=== PATIENT | female | born 1950 | race Caucasian/White ===

== ENCOUNTER 2020-01-21 10:17 | Outpatient (CLI) | payer OTHER, SELFPAY ==
--- NOTE | ~2020-01-21 | MM_ITS ---
EXAMINATION: MM screening dany BI w carleen HISTORY: Screening mammogram TECHNIQUE: Craniocaudal and mediolateral oblique 3-D tomosynthesis images were obtained and synthetic 2-D images were generated. CAD analysis was submitted and interpreted. COMPARISON: Comparison to multiple prior studies sequentially, with oldest reviewed study dated 10/22. BREAST PARENCHYMAL COMPOSITION: There are scattered areas of fibroglandular density. FINDINGS: The left breast is surgically absent. There is no evidence of suspicious mass, calcificatio n, or architectural distortion to suggest malignancy in either breast. There has been no suspicious i nterval change. IMPRESSION: 1. No mammographic evidence of malignancy. 2. Recommend routine screening mammography in one year. BI-RADS Category 1: Negative Reviewed, dictated and finalized at location A.
== END 2020-01-21 10:18 | disposition home or self-care (01) ==
LOC: ANHIMG 10:26
PROVIDERS: Visit Provider Emergency Medicine
DX: Z12.31 Encounter for screening mammogram for malignant neoplasm of breast (principal)
CPT/HCPCS: 77063; 77067

== ENCOUNTER 2021-02-10 10:28 | Outpatient (CLI) | payer OTHER, SELFPAY ==
--- NOTE | ~2021-02-10 | MM_ITS ---
EXAMINATION: MM screening dany RT w carleen HISTORY: Screening TECHNIQUE: Craniocaudal and mediolateral oblique 3-D tomosynthesis images were obtained and synthetic 2-D images were generated. CAD analysis was submitted and interpreted. COMPARISON: Comparison to multiple prior studies sequentially, with oldest reviewed study dated 10/22. BREAST PARENCHYMAL COMPOSITION: The breasts are heterogeneously dense, which may obscure small masses . FINDINGS: There is no evidence of suspicious mass, calcification, or architectural distortion to sugg est malignancy in either breast. There has been no suspicious interval change. IMPRESSION: 1. No mammographic evidence of malignancy. 2. Recommend routine screening mammography in one year. BI-RADS Category 1: Negative Reviewed, dictated and finalized at location A.
== END 2021-02-10 10:29 | disposition home or self-care (01) ==
LOC: ANHIMG 10:30
PROVIDERS: Visit Provider Emergency Medicine
DX: Z12.31 Encounter for screening mammogram for malignant neoplasm of breast (principal)
CPT/HCPCS: 77063; 77067

== ENCOUNTER 2022-03-16 10:11 | Outpatient (CLI) | payer OTHER, SELFPAY ==
--- NOTE | ~2022-03-16 | MM_ITS ---
EXAMINATION: MM screening dany RT w carleen HISTORY: Screening TECHNIQUE: Craniocaudal and mediolateral oblique 3-D tomosynthesis images were obtained and synthetic 2-D images were generated. CAD analysis was submitted and interpreted. COMPARISON: Comparison to multiple prior studies sequentially, with oldest reviewed study dated 10/10. BREAST PARENCHYMAL COMPOSITION: The breasts are heterogenously dense, which may obscure small masses FINDINGS: There is no evidence of suspicious mass, calcification, or architectural distortion to sugg est malignancy in the right breast. There has been no suspicious interval change. IMPRESSION: 1. No mammographic evidence of malignancy. 2. Recommend routine screening mammography in one year. BI-RADS Category 1: Negative Reviewed, dictated and finalized at location A.
== END 2022-03-16 10:12 | disposition home or self-care (01) ==
PROVIDERS: Visit Provider Family Medicine
DX: Z12.31 Encounter for screening mammogram for malignant neoplasm of breast (principal)
CPT/HCPCS: 77063; 77067

== ENCOUNTER 2022-10-15 09:15 | Emergency (ER) | payer OTHER, SELFPAY ==
--- NOTE | ~2022-10-15 | XR_ITS ---
EXAMINATION: XR nasal bones min 3V DATE: 10/15/2022 10:12 INDICATION: Nose injury and swelling. TECHNIQUE: 3 views of the nasal bones were obtained. COMPARISON: Head CT 03/08/2015 FINDINGS: There is chronic rightward deviation of the nasal septum. There are nondisplaced fractures of the nasal bones. IMPRESSION: 1. Nondisplaced fractures of the nasal bones. Reviewed, dictated and finalized at location A. 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
--- NOTE | ~2022-10-15 | XR_ITS ---
EXAMINATION: XR chest 2V DATE: 10/15/2022 10:11 INDICATION: Syncope. TECHNIQUE: Frontal and lateral views of the chest were obtained. COMPARISON: Chest 2 views 10/05/2012 FINDINGS: There is no pneumonia, pleural effusion, or pneumothorax. The heart size is normal. IMPRESSION: 1. No acute cardiopulmonary disease. Reviewed, dictated and finalized at location A. 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
--- NOTE | 2022-10-15 09:20 | ECG_ITS ---
Measurements Intervals [place] Rate: 58 P: -1 KS: 141 QRS: -54 QRSD: 161 T: 112 QT: 436 QTc: 431 Interpretive Statements SINUS BRADYCARDIA LEFT AXIS DEVIATION LEFT BUNDLE BRANCH BLOCK BASELINE ARTIFACT- I, II, III, AVR, AVL, AVF ABNORMAL ECG NO PREVIOUS ECG AVAILABLE FOR COMPARISON Electronically Signed On 10-15-2022 10:44:35 SHERIFF DEPUTY by Partha Solis D.O.
--- NOTE | 2022-10-15 09:27 | ED.SYNCOPE ---
HPI - Syncope General Chief Complaint: Syncope Stated Complaint: Syncope Time Seen by Provider: 10/15/22 09:15 Source: patient and EMS Mode of arrival: EMS Limitations: no limitations History of Present Illness HPI narrative: 72 year old female arrives to the Emergency Department via EMS. Patient was standing in yaz[place] and felt light headed. She kneeled down and then had syncopal episode and fell forward striking her nose. She had epistaxis initially, which has resolved. She denies any chest pain or shortness of breath prior. She had new /adjustment in her blood pressure medication [Atenolol] 2 weeks ago. EMS reports initial blood pressure reading they obtained was systolic 50. Patient did eat breakfast. Fingerstick glucose 206. Patient states she feels normal now. He nose is a little sore. No recent illness, nausea, vomiting, diarrhea. States has been under a lot of stress recently helping take care of her harriet, who had knee surgery. MD complaint: loss of consciousness Onset (ago): minute(s) -: second(s) Prodromal symptoms: lightheaded Witnessed: Yes - by Bystander Context: standing up (initially, then when felt light headed, kneeled down) Injuries sustained associated with event: face (struck nose and had epistaxis) Current symptoms: none History: other (hypertension with recent adjustment in medication [atenolol]) Treatments prior to arrival: IV fluids Related Data Home Medications Medication Instructions Recorded Confirmed amlodipine 2.5 mg tablet 1.25 mg PO DAILY 10/15/22 10/15/22 aspirin 81 mg tablet,delayed 162 mg PO DAILY 10/15/22 10/15/22 release atenolol 25 mg tablet 25 mg PO DAILY 10/15/22 10/15/22 [id number] 1 tab-cap PO DAILY 10/15/22 10/15/22 montelukast 10 mg tablet 10 mg PO DAILY 10/15/22 10/15/22 [id number]-[id number] tablet 1 tablet PO DAILY 10/15/22 10/15/22 omega-3 fatty acids-vitamin E 1 cap PO DAILY 10/15/22 10/15/22 1,000 mg capsule pravastatin 20 mg tablet 20 mg PO DAILY 10/15/22 10/15/22 Allergies Allergy/AdvReac Type Severity Reaction Status Date / Time adhesive tape Allergy Intermediate RASH Verified 10/15/22 09:52 codeine Allergy Unknown Hallucinati Verified 10/15/22 09:52 ng Review of Systems Review of Systems: All systems reviewed & are unremarkable except as noted in HPI and below Constitutional: Constitutional: Reports as per HPI, Reports no additional constitutional complaints, Denies chills, Reports fatigue, Denies fever(s) and Denies weakness Eyes: Eyes: Reports as per HPI, Reports no additional eye complaints and Denies change in vision ENT: Reports system reviewed and no additional complaints, except as documented and Reports as per HPI Cardiovascular: Cardiovascular: Reports as per HPI, Reports no additional cardiovascular complaints, Denies chest pain, Denies rapid heart rate and Denies slow heart rate Respiratory: Respiratory: Reports as per HPI, Reports no additional respiratory complaints, Denies cough and Denies dyspnea Gastrointestinal: Gastrointestinal: Reports as per HPI, Reports no additional gastrointestinal complaints, Denies abdominal pain, Denies diarrhea, Denies nausea and Denies vomiting Genitourinary: Genitourinary: Reports no additional female genitourinary complaints, Reports as per HPI, Denies nocturia and Denies dysuria Musculoskeletal: Musculoskeletal: Reports no additional musculoskeletal complaints, Reports as per HPI, Denies back pain and Denies myalgias Integumentary/Breasts: Skin/Breast: Reports system reviewed and no additional complaints, except as docu Neurologic: Reports system reviewed and no additional complaints, except as documented, Reports as per HPI, Reports dizziness, Reports syncope, Denies headache(s), Denies focal weakness, Denies numbness and Denies weakness Psychiatric: Psychiatric: Reports no additional psychiatric complaints and Reports as per HPI Endocrine: Endocrine: Reports no additional
[2022-10-15 09:28] VITALS: BP 164/76; BP 169/83; BP 174/69; PULSE 65; PULSE 71; PULSE 80
[2022-10-15 09:37] VITALS: BP 174/69; PULSE 63; RESP 20; TEMP 36.6; O2SAT 96
[2022-10-15 09:43] VITALS: PULSE 71
[2022-10-15 09:47] LABS: Basophils Absolute Auto 0.06 K/mm3 (0.00-0.10); Eosinophils Absolute Auto 0.14 K/mm3 (0.02-0.50); Eosinophils Percent Auto 2.3 % (1.0-6.0); Hematocrit 45.7 % (35.0-42.0); Hemoglobin 13.6 g/dL (11.7-13.8); Immature Granulocyte Absolute 0.01 K/mm3 (0.00-0.00); Immature Granulocyte Percent A 0.2 % (0.0-0.0); Lymphocytes Absolute Auto 1.55 K/mm3 (1.10-4.50); Lymphocytes Percent Auto 25.7 % (18.0-42.0); Mean Corpuscular HGB Conc 29.8 g/dL (32.0-36.0); Mean Corpuscular Hemoglobin 31.9 pg (27.0-31.0); Mean Corpuscular Volume 107.3 fL (78.0-102.0); Mean Platelet Volume 8.8 fl (9.2-11.8); Monocytes Absolute Auto 0.45 K/mm3 (0.10-0.90); Monocytes Percent Auto 7.5 % (2.0-11.0); Neutrophils Absolute Auto 3.8 K/mm3 (1.7-7.2); Neutrophils Percent Auto 63.3 % (50.0-70.0); Platelet Count Result 239 K/mm3 (150-420); Red Blood Count 4.26 M/mm3 (4.20-5.40); Red Cell Distribution Width 11.9 % (11.6-14.4)
[2022-10-15 09:48] VITALS: O2SAT 96
[2022-10-15 10:03] LABS: Alanine Aminotransferase 23 U/L (14-59); Albumin Level 3.6 g/dL (3.4-5.0); Alkaline Phosphatase 65 U/L (46-116); Anion Gap 10 mmol/L (8-16); Aspartate Amino Transferase 21 U/L (15-37); Bilirubin,Total 0.5 mg/dL (0.00-1.00); Blood Urea Nitrogen 23 mg/dL (7-18); Calcium 9.2 mg/dL (8.5-10.1); Carbon Dioxide 24 mmol/L (21-32); Chloride 107 mmol/L (98-108); Estimated CRCL calculation 56 ml/min; Estimated Glomerular Filt Rate > 60; Glucose 153 mg/dL (70-99); Magnesium 2.1 mg/dL (1.8-2.4); Osmolality Calculated 298 mOsm/kg (285-295); Potassium 4.1 mmol/L (3.5-5.1); Sodium 141 mmol/L (136-145); Total Protein 7.2 g/dL (6.4-8.2); Troponin I 6.7 ng/L (0.00-60.4)
[2022-10-15 10:37] LABS: Appearance Urine Clear (Clear); Bilirubin Urine Negative (Negative); Blood Urine Negative (Negative); Color Urine Light Yellow (Yellow); Glucose Urine UA Negative (Negative); Ketones Urine Negative (Negative); Leukocyte Esterase Ur Trace (Negative); Nitrate Urine Negative (Negative); Protein Urine Trace (Negative); Urobilinogen Urine 0.2 mg/dL (0.2-1.0); pH Urine 6.5 (5.0-8.0)
[2022-10-15 10:42] LABS: Add Urine Microscopic? YES; Bacteria Urine Trace /hpf; RBC Urine None seen /hpf (0-2); Squamous Epithelial Cell Urine Rare /hpf (Few); WBC Urine 0-3 /hpf (0-3)
[2022-10-15 10:43] LABS: Amorphous Sediment Urine Few
[2022-10-15 11:38] VITALS: BP 175/77; PULSE 74
[2022-10-15 11:39] VITALS: BP 168/81; BP 174/70; PULSE 73; PULSE 80
== END 2022-10-15 12:10 | disposition home or self-care (01) ==
PROVIDERS: Emergency Provider Emergency Medicine
DX: I95.1 Orthostatic hypotension (principal); E86.0 Dehydration; S02.2XXA Fracture of nasal bones, initial encounter for closed fracture; Z79.82 Long term (current) use of aspirin; W18.30XA Fall on same level, unspecified, initial encounter; Y92.22 Religious institution as the place of occurrence of the external cause
CPT/HCPCS: 36415; 70160; 71046; 80053; 81001; 83735; 84484; 85025; 93005; 99284

== ENCOUNTER 2023-06-01 14:39 | Outpatient (CLI) | payer OTHER, SELFPAY ==
--- NOTE | ~2023-06-01 | MM_ITS ---
EXAMINATION: MM screening dany LT w carleen HISTORY: Screening TECHNIQUE: Craniocaudal and mediolateral oblique 3-D tomosynthesis images were obtained and synthetic 2-D images were generated. CAD analysis was submitted and interpreted. COMPARISON: Comparison to multiple prior studies sequentially, with oldest reviewed study dated 09/2016. BREAST PARENCHYMAL COMPOSITION: The breasts are heterogeneously dense, which may obscure small masses . FINDINGS: There is no evidence of suspicious mass, calcification, or architectural distortion to sugg est malignancy in either breast. There has been no suspicious interval change. IMPRESSION: 1. No mammographic evidence of malignancy. 2. Recommend routine screening mammography in one year. BI-RADS Category 1: Negative Reviewed, dictated and finalized at location A.
== END 2023-06-01 14:40 | disposition home or self-care (01) ==
LOC: ANHIMG 14:42
PROVIDERS: PCP Family Medicine Sports Medicine; Visit Provider Family Medicine Sports Medicine
DX: Z12.31 Encounter for screening mammogram for malignant neoplasm of breast (principal)
CPT/HCPCS: 77063; 77067

== ENCOUNTER 2024-06-07 15:07 | Outpatient (CLI) | payer OTHER, SELFPAY ==
--- NOTE | ~2024-06-07 | MM_ITS ---
EXAMINATION: MM screening dany RT w carleen HISTORY: Screening TECHNIQUE: Craniocaudal and mediolateral oblique 3-D tomosynthesis images were obtained and synthetic 2-D images were generated. CAD analysis was submitted and interpreted. COMPARISON: Comparison to multiple prior studies sequentially, with oldest reviewed study dated . . BREAST PARENCHYMAL COMPOSITION: Not dense: There are scattered areas of fibroglandular density. FINDINGS: There is no evidence of suspicious mass, calcification, or architectural distortion to sugg est malignancy in the right breast. There has been no suspicious interval change. IMPRESSION: 1. No mammographic evidence of malignancy. 2. Recommend routine screening mammography in one year. BI-RADS Category 1: Negative Reviewed, dictated and finalized at location B.
== END 2024-06-07 15:08 | disposition home or self-care (01) ==
PROVIDERS: PCP Family Medicine Sports Medicine; Visit Provider Family Medicine Sports Medicine
DX: Z12.31 Encounter for screening mammogram for malignant neoplasm of breast (principal)
CPT/HCPCS: 77063; 77067

== ENCOUNTER 2025-05-22 09:30 | Outpatient (CLI) | payer OTHER, SELFPAY ==
--- NOTE | ~2025-05-22 | CT_ITS ---
EXAMINATION: CT abdomen pelvis w con DATE: 05/22/2025 10:02 INDICATION: Abdominal pain. TECHNIQUE: Computed tomography (CT) of the abdomen and pelvis was performed with 100 mL Omnipaque 350 intravenous contrast. Automated exposure control and iterative reconstruction technique were employed. The dose-length product was 473.93 mGy-cm. COMPARISON: None. FINDINGS: The visualized portions of lung bases demonstrate mild atelectasis. No pleural effusion. The heart size is normal. There are coronary artery calcifications. No pericardial effusion. There is a left breast implant. The liver, gallbladder, spleen, pancreas, adrenal glands, and right kidney are normal. There are two 3 mm stones in left kidney. There is diverticulosis of the colon without evidence of diverticulitis. There are changes of appendectomy. There are no pathologically enlarged lymph nodes. There is no free intraperitoneal fluid. There is severe thoracic spondylosis and mild lumbar sp ondylosis. There are changes of anterior fusion procedure at L5-S1. IMPRESSION: 1. No etiology for the patient's symptoms. Reviewed, dictated and finalized at location E.
[2025-05-22 09:53] LABS: Estimated Glomerular Filt Rate > 60
== END 2025-05-22 09:31 | disposition home or self-care (01) ==
PROVIDERS: PCP Family Medicine Sports Medicine; Visit Provider Family Medicine Sports Medicine
DX: R10.9 Unspecified abdominal pain (principal)
CPT/HCPCS: 74177; Q9967

== ENCOUNTER 2025-06-18 15:25 | Outpatient (CLI) | payer OTHER, SELFPAY ==
--- OUTSIDE RECORDS SUMMARY | 2025-02-27 11:30 | XMS_ITS ---
Author Organization [employer] [facility] [place] ([address]) Address [address] [place] [address] Care Team Providers Care Top Carrier Name Role Phone Norm Gutierrez Primary Care Provider Unavail able Renetta Reyes Unavailable [phone] REASON FOR VISIT Asthma follow-up Social History Sex Assigned At : Social History Observation Description Sex Assigned At Female Encounters Encounter Location Date Provider Diagnosis [address] [address] 02/27/2025 Renetta Reyes Plan Of Treatment Next Appt Details Provider Name:Renetta langston, 06/20/2025 03:00:00 PM, [address], [address], Provider Name:German Hawk , 07/17/2025 11:00:00 AM, [address], [place], [address], Progress Notes * Kyung NARVAEZDOB:1949 (75 yo F)Acc No.[id number]:02/27/2025 Asthma F/U Patient: Selwyn JEFFRIESABAD Kyung Provider: JETT WomackP-BC :1950 A ge:75 Y S ex:Female Date:02/27/2025 [id number] Pcp:Norm Gutierrez Subjective: * Chief Complaints: * 1 . Asthma follow-up. 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
--- NOTE | ~2025-06-18 | MM_ITS ---
EXAMINATION: MM screening dany RT w carleen INDICATION: Asymptomatic, referred for screening mammogram. History of Left mastectomy 1999. COMPARISON: 06/07/2024 through 12/29/2018 TECHNIQUE: Full field digital CC, MLO views were obtained of RIGHT breast with computer-aided detection to assist in interpretation of the study. FINDINGS: There are scattered areas of fibroglandular density. No focal dominant mass, architectural distortion, or suspicious microcalcifications are identified. There are no features to suggest malignancy. IMPRESSION: 1. No mammographic evidence of malignancy. 2. Recommend routine screening mammography in one year. BI-RADS Category 1: Negative Reviewed, dictated and finalized at location B. 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
--- OUTSIDE RECORDS SUMMARY | 2025-06-18 16:39 | XMS_ITS | Patient Health Record ---
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 Mechanical Name Role Phone Norm Gutierrez Primary Care Provider Unavail able Renetta Reyes Unavailable [phone] German Hawk Unavailable [phone] Allergies No Known Allergies Results Component Value Reference Range Notes -Vitamin D, 25-Hydroxy Reviewed date:06/27/2024 11:27:25 AM Interpretation: Performing Lab:[facility], [address] [place] [address] [id number], Phone - [phone], Director - Senia Notes/Report: Vitamin D, 25-Hydroxy 52.6 30.0-100.0 ng/mL Vitamin D deficiency has been defined by the [place] of [employer] and an Endocrine Society practice guideline as a level of serum 25-OH vitamin D less than 20 ng/mL (1,2). The Endocrine Society went on to further define vitamin D insufficiency as a level between 21 and 29 ng/mL (2). 1. IOM ([place] of Medicine). 2010. Dietary reference intakes for calcium and D. [place]: The National Academies Press. 2. Gwen MF, James RYAN, Akin MYLES, et al. Evaluation, treatment, and prevention of vitamin D deficiency: an Endocrine Society clinical practice guideline. JCEM. 2010; 96(7):1911-30. Spirometry Reviewed date:09/18/2024 08:27:57 AM Interpretation:Abnormal - FVL Performing Lab: Notes/Report: Abnormal - FVL SpiroPreBronchodilator_FVC 2.29 SpiroPostBronchodilator_FEF2 5_7 5 0 SpiroPreBronchodilator_FEF25_75 1.64 SpiroPreBronchodilator_FEV1 1.77 SpiroPrecentPredictionPost_F EF2 5_75 0 SpiroPrecentPredictionPost_FEV1 0 SpiroPrecentPredictionPost_F EV1 _OVER_FVC 0 SpiroPrecentPredictionPost_FVC 0 SpiroPrecentPredictionPre_FE F25 _75 92.1 SpiroPrecentPredictionPre_FEV1 81.9 SpiroPrecentPredictionPre_FE V1_ OVER_FVC 104.2 SpiroPrecentPredictionPre_FVC 79 SpiroPredicted_FEF25_75 1.78 SpiroPreBronchodilator_FEV1_ OVE R_FVC 77.43 SpiroPreBronchodilator_PEF 4.67 SpiroPostBronchodilator_FVC 0 SpiroPostBronchodilator_FEV1 0 SpiroPostBronchodilator_FEV1 _OV ER_FVC 0 SpiroPostBronchodilator_PEF 0 SpiroPredicted_FVC 2.9 SpiroPredicted_FEV1 2.16 SpiroPredicted_FEV1_OVER_FVC 74.33 SpiroPredicted_PEF 5.48 -Vitamin D, 25-Hydroxy Reviewed date:04/11/2025 12:58:30 PM Interpretation:Normal Performing Lab:[facility], [address] [place] [address] [id number], Phone - [phone], Director - Senia Notes/Report: Vitamin D, 25-Hydroxy 36.0 30.0-100.0 ng/mL Vitamin D deficiency has been defined by the [place] of [employer] and an Endocrine Society practice guideline as a level of serum 25-OH vitamin D less than 20 ng/mL (1,2). The Endocrine Society went on to further define vitamin D insufficiency as a level between 21 and 29 ng/mL (2). 1. IOM ([place] of [employer]). 2010. Dietary reference intakes for calcium and D. [place]: The National Academies Press. 2. Gwen MF, James [place], Akin MYLES, et al. Evaluation, treatment, and prevention of vitamin D deficiency: an Endocrine Society clinical practice guideline. JCEM. 2010; 96(7):1911-30. Spirometry Reviewed date:03/25/2025 01:56:09 PM Interpretation:Abnormal - FVL Performing Lab: Notes/Report: Abnormal - FVL SpiroPreBronchodilator_FVC 2.2 SpiroPostBronchodilator_FEF2 5_7 5 0 SpiroPreBronchodilator_FEF25_75 2.34 SpiroPreBronchodilator_FEV1 1.83 SpiroPrecentPredictionPost_F EF2 5_75 0 SpiroPrecentPredictionPost_FEV1 0 SpiroPrecentPredictionPost_F EV1 _OVER_FVC 0 SpiroPrecentPredictionPost_FVC 0 SpiroPrecentPredictionPre_FE F25 _75 135.3 SpiroPrecentPredictionPre_FEV1 85.9 SpiroPrecentPredictionPre_FE V1_ OVER_FVC 112.3 SpiroPrecentPredictionPre_FVC 76.7 SpiroPredicted_FEF25_75 1.73 SpiroPreBronchodilator_FEV1_ OVE R_FVC 83.19 SpiroPreBronchodilator_PEF 4.5 SpiroPostBronchodilator_FVC 0 SpiroPostBronchodilator_FEV1 0 SpiroPostBronchodilator_FEV1 _OV ER_FVC 0 SpiroPostBronchodilator_PEF 0 SpiroPredicted_FVC 2.87 SpiroPredicted_FEV1 2.13 SpiroPredicted_FEV1_OVER_FVC 74.08 SpiroPredicted_PEF 5.45 Reason For Referral Reason Z51.6 Referring Provider First Name Norm Referring Provider Last Name Brenda Referring Provider Speciality Family [facility] ctice Referred Organization [facility] Referred Provider Renetta Reyes Referred Address [address] [place],[address], Referred Provider Specialty Allergy/Immu nology Referral Priority Routine Reason Z51.6 [facility]erred Provider Renetta Reyes Referred Address [address] [place], [place],[address], Referral Priority Routine Medications Medication SIG (Take, Route, Frequency, Duration) Notes Start Date End Date Status EPIPEN 2-RUFINO 0.3 mg as directed intramuscularly once; Duration: 30 days Active MONTELUKAST 10 mg 1 tab(s) orally once a day Active NASAL WASHES N/A as directed intranasally as needed; Duration: 30 days Active Calcium 500+D 500 MG-10 MCG 1 TAB(S) CHEWED 2 TIMES A DAY *Please review and pick correct strength-formula tion from [email or web address] options. If intended option is not shown, discontinue and re-order from Quick Search* Active Aspirin 81 MG 1 tab(s) orally twic e a day Active EpiPen 2-Rufino 0.3 mg as directed intramuscularly once; Duration: 30 days Active Fexofenadine HCl 180 MG 1 tab(s) orally once a day Active Montelukast Sodium 10 mg TAKE 1 TABLET DAILY Active Magnesium Glycinate 100 MG as directed Orally Activ e Vitamin D3 1000 UNIT 1 CAP(S) ORALLY ONCE A WEEK *Please review and pick correct strength-formula tion from [email or web address] options. If intended option is not shown, discontinue and re-order from Quick Search* 01/25/2024 Active Vitamin B Complex - as directed Orally Active Fluticasone-Salmet jurgen 250-50 MCG/ACT INHALE 1 PUFF BY MOUTH TWICE A DAY; Duration: 30 Not-Taking AeroChamber MV - as directed; Duration: 30 days Any adult spacer Active Advair HFA 115-21 MCG/ACT INHALE 2 PUFFS INTO THE LUNGS TWICE A DAY FOR 90 DAYS; Duration: 90 Active Famotidine 20 MG 1 tablet Orally 30 minutes prior to SCIT; Duration: 30 days 10/31/2024 Active SIT (Traditional) variable - see record per schedule subcutaneous per schedule; Duration: 999 days Active Pravastatin Sodium 20 MG 1 tab(s) orally once a day Active FEXOFENADINE 180 mg 1 tab(s) orally once a day Active amLODIPine Besylate 2.5 MG 1 tab(s) orally once a day Active ALBUTEROL (EQV-VENTOLIN HFA) 90 mcg/inh 2 puff(s) inhaled every 4-6 hours PRN per asthma action plan Active Centrum THERAPEUTIC MULTIPLE VITAMINS WITH MINERALS 1 TAB(S) ORALLY ONCE A DAY *Please review and pick correct strength-formula tion from [email or web address] options. If intended option is not shown, discontinue and re-order from Quick Search* Active Fish Oil 1000 MG 1 cap(s) orally 3 times a day (with meals) Active Advair HFA 115-21 MCG/ACT 2 puffs Inhalation Twice a day; Duration: 90 days Active Immunizations Vaccine Route Administration Date Status Comme nts NOC Pneumovax 23 IM Intramuscular 01/30/2024 Administered Social History Tobacco Use: Social History Observation Description Date Details (start date - stop date) Former Smoker NA - NA Sex Assigned At : Social History Observation Description Sex Assigned At Female Tobacco Control (Standard) Question Answer Notes Tobacco use: Former smoker How long has it been since you last smoked? Grea ter than 10 years AUDIT-C (Standard) Question Answer Notes Did you have a drink contain ing alcohol in the past year? Yes How often did you have a dri nk containing alcohol in the past year? Monthly or less (1 point) How many drinks did you have on a typical day when you were drinking in the past year? 1 or 2 drinks (0 point) How often did you have six o r more drinks on one occasion in the past year? Never (0 point) Points 1 Interpretation Negative Problems Problem Type SNOMED Code ICD Code Onset Dates Problem Status W/U Status Risk Notes Problem Vitamin D deficiency (40150005) Vitamin D deficiency, unspecified (E55.9) Active confirmed Problem Chronic allergic conjunctivitis (57022139) Other chronic allergic conjunctivitis (H10.45) Active confirmed Problem Essential hypertension (80665707) Essential (primary) hypertension (I10) Active confirmed Problem Allergic rhinitis caused by pollen (disorder) (77080179) Allergic rhinitis due to pollen (J30.1) Active confirmed Problem Allergic rhinitis (57630320) Other allergic rhinitis (J30.89) Active confirmed Problem Chronic sinusitis (10276488) Chronic sinusitis, unspecified (J32.9) Active confirmed Problem Allergic rhinitis caused by animal hair and dander (724497789130606) Allergic rhinitis due to animal (cat) (dog) hair and dander (J30.81) Active confirmed Problem Chronic sinusitis (69185247) Other chronic sinusitis (J32.8) Active confirmed Problem Chronic cough (55312071) Chronic cough (R05.3) Active confirmed Vital Signs Blood pressure diastolic 77 mm Hg 03/21/2025 Oximetry 99 % 03/21/2025 Height 65 in 03/21/2025 Blood pressure systolic 166 mm Hg 03/21/2025 Weight 175.8 lbs 03/21/2025 BMI 29.25 kg/m2 03/21/2025 Encounters Encounter Location Date Provider Diagnosis [address] [address] 10/02/2024 German Hawk Allergic rhinitis du e to pollen J30.1 ; Allergic rhinitis due to animal (cat) (dog) hair and dander J30.81 ; Other allergic rhinitis J30.89 and Other chronic allergic conjunctivitis H10.[address] [address] 09/27/2024 German Hawk Allergic rhinitis du e to pollen J30.1 ; Allergic rhinitis due to animal (cat) (dog) hair and dander J30.81 ; Other allergic rhinitis J30.89 and Other chronic allergic conjunctivitis H10.45 [facility] [address] [place] [phone] 09/19/2024 German Hawk Allergic rhinitis du e to pollen J30.1 ; Allergic rhinitis due to animal (cat) (dog) hair and dander J30.81 ; Other allergic rhinitis J30.89 and Other chronic allergic conjunctivitis H10.45 [facility] [address] [place] [phone] 09/05/2024 German Hawk Allergic rhinitis du e to pollen J30.1 ; Allergic rhinitis due to animal (cat) (dog) hair and dander J30.81 ; Other allergic rhinitis J30.89 and Other chronic allergic conjunctivitis H10.[address] [address] 08/29/2024 German Hawk Allergic rhinitis du e to pollen J30.1 ; Allergic rhinitis due to animal (cat) (dog) hair and dander J30.81 ; Other allergic rhinitis J30.89 and Other chronic allergic conjunctivitis H10.[address] [address] 08/22/2024 German Hawk Allergic rhinitis du e to pollen J30.1 ; Allergic rhinitis due to animal (cat) (dog) hair and dander J30.81 ; Other allergic rhinitis J30.89 and Other chronic allergic conjunctivitis H10.45 [facility] [address] [place] [address] [address] [address] 08/13/2024 German Hawk Allergic rhinitis du e to pollen J30.1 ; Allergic rhinitis due to animal (cat) (dog) hair and dander J30.81 ; Other allergic rhinitis J30.89 and Other chronic allergic conjunctivitis H10.45 [facility] [address] [place] [address] [address] [address] 08/06/2024 German Hawk Allergic rhinitis du e to pollen J30.1 ; Allergic rhinitis due to animal (cat) (dog) hair and dander J30.81 ; Other allergic rhinitis J30.89 and Other chronic allergic conjunctivitis H10.45 [facility] [address] [place] [address] [address] [address] 07/18/2024 German Hawk Allergic rhinitis du e to pollen J30.1 ; Allergic rhinitis due to animal (cat) (dog) hair and dander J30.81 ; Other allergic rhinitis J30.89 and Other chronic allergic conjunctivitis H10.45 [facility] [address] [place] [address] [address] [address] 07/11/2024 German Hawk Allergic rhinitis du e to pollen J30.1 ; Allergic rhinitis due to animal (cat) (dog) hair and dander J30.81 ; Other allergic rhinitis J30.89 and Other chronic allergic conjunctivitis H10.45 [facility] [address] [place] [address] [address] [address] 07/04/2024 German Hawk Allergic rhinitis du e to pollen J30.1 ; Allergic rhinitis due to animal (cat) (dog) hair and dander J30.81 ; Other allergic rhinitis J30.89 and Other chronic allergic conjunctivitis H10.45 [facility] [address] [place] [address] [address] [address] 06/27/2024 German Hawk Allergic rhinitis du e to pollen J30.1 ; Allergic rhinitis due to animal (cat) (dog) hair and dander J30.81 ; Other allergic rhinitis J30.89 and Other chronic allergic conjunctivitis H10.45 [facility] [address] [place] [address] [address] [address] 06/12/2025 German Kenn Allergic rhinitis du e to pollen J30.1 ; Allergic rhinitis due to animal (cat) (dog) hair and dander J30.81 ; Other allergic rhinitis J30.89 and Other chronic allergic conjunctivitis H10.45 [facility] [address] [place] [address] [address] [address] 05/15/2025 German Kenn Allergic rhinitis du e to pollen J30.1 ; Allergic rhinitis due to animal (cat) (dog) hair and dander J30.81 ; Other allergic rhinitis J30.89 and Other chronic allergic conjunctivitis H10.45 [facility] [address] [place] [address] [address] [address] 04/17/2025 German Kenn Allergic rhinitis du e to pollen J30.1 ; Allergic rhinitis due to animal (cat) (dog) hair and dander J30.81 ; Other allergic rhinitis J30.89 and Other chronic allergic conjunctivitis H10.45 [facility] [address] [place] [address] [address] [address] 02/27/2025 German Kenn Allergic rhinitis du e to pollen J30.1 ; Allergic rhinitis due to animal (cat) (dog) hair and dander J30.81 ; Other allergic rhinitis J30.89 and Other chronic allergic conjunctivitis H10.45 [facility] [address] [place] [address] [address] [address] 02/20/2025 German Hawk Allergic rhinitis du e to pollen J30.1 ; Allergic rhinitis due to animal (cat) (dog) hair and dander J30.81 ; Other allergic rhinitis J30.89 and Other chronic allergic conjunctivitis H10.45 [facility] [address] [place], [place] [address] [address] [place] [address] 02/13/2025 German Hawk Allergic rhinitis du e to pollen J30.1 ; Allergic rhinitis due to animal (cat) (dog) hair and dander J30.81 ; Other allergic rhinitis J30.89 and Other chronic allergic conjunctivitis H10.45 [facility] [address] [place], [place] [address] [address] [place] [phone] 01/30/2025 German Hawk Allergic rhinitis du e to pollen J30.1 ; Allergic rhinitis due to animal (cat) (dog) hair and dander J30.81 ; Other allergic rhinitis J30.89 and Other chronic allergic conjunctivitis H10.45 [facility] [address] [place] [address] [address] 01/16/2025 German Hawk Allergic rhinitis du e to pollen J30.1 ; Allergic rhinitis due to animal (cat) (dog) hair and dander J30.81 ; Other allergic rhinitis J30.89 and Other chronic allergic conjunctivitis H10.45 [facility] [address] [place] [address] 01/02/2025 German Hawk Allergic rhinitis du e to pollen J30.1 ; Allergic rhinitis due to animal (cat) (dog) hair and dander J30.81 ; Other allergic rhinitis J30.89 and Other chronic allergic conjunctivitis H10.45 [facility] [address] [place] [address] 12/19/2024 German Hawk Allergic rhinitis du e to pollen J30.1 ; Allergic rhinitis due to animal (cat) (dog) hair and dander J30.81 ; Other allergic rhinitis J30.89 and Other chronic allergic conjunctivitis H10.45 [facility] [address] [place] [address] 12/05/2024 German Hawk Allergic rhinitis du e to pollen J30.1 ; Allergic rhinitis due to animal (cat) (dog) hair and dander J30.81 ; Other allergic rhinitis J30.89 and Other chronic allergic conjunctivitis H10.45 [facility] [address] [place] [address] 11/28/2024 German Hawk Allergic rhinitis du e to pollen J30.1 ; Allergic rhinitis due to animal (cat) (dog) hair and dander J30.81 ; Other allergic rhinitis J30.89 and Other chronic allergic conjunctivitis H10.45 [facility] [address] [place] [address] 11/22/2024 German Hawk Allergic rhinitis du e to pollen J30.1 ; Allergic rhinitis due to animal (cat) (dog) hair and dander J30.81 ; Other allergic rhinitis J30.89 and Other chronic allergic conjunctivitis H10.45 [facility] [address] [place], [place] [address] [address] [place] [phone] 11/07/2024 German Hawk Allergic rhinitis du e to pollen J30.1 ; Allergic rhinitis due to animal (cat) (dog) hair and dander J30.81 ; Other allergic rhinitis J30.89 and Other chronic allergic conjunctivitis H10.45 [facility] [address] [place], [place] [address] [address] [address] 10/24/2024 German Hawk Allergic rhinitis du e to pollen J30.1 ; Allergic rhinitis due to animal (cat) (dog) hair and dander J30.81 ; Other allergic rhinitis J30.89 and Other chronic allergic conjunctivitis H10.45 [facility] [address] [place], [place] [address] [address] [address] 10/17/2024 Germanemmanuel Hawk Allergic rhinitis du e to pollen J30.1 ; Allergic rhinitis due to animal (cat) (dog) hair and dander J30.81 ; Other allergic rhinitis J30.89 and Other chronic allergic conjunctivitis H10.45 [facility] [address] [place], [place] [address] [address] [address] 03/21/2025 Renetta Reyes Allergic rhinitis du e to pollen J30.1 ; Allergic rhinitis due to animal (cat) (dog) hair and dander J30.81 ; Other allergic rhinitis J30.89 ; Chronic cough R05.3 ; Wheezing R06.2 ; Chronic sinusitis, unspecified J32.9 ; Vitamin D deficiency, unspecified E55.9 and Essential (primary) hypertension I10 [facility] [address] [place], [place] [address] [address] [place] [phone] 09/12/2024 Renetta Reyes Allergic rhinitis du e to pollen J30.1 ; Allergic rhinitis due to animal (cat) (dog) hair and dander J30.81 ; Other allergic rhinitis J30.89 ; Chronic cough R05.3 ; Wheezing R06.2 ; Chronic sinusitis, unspecified J32.9 ; Vitamin D deficiency, unspecified E55.9 and Essential (primary) hypertension I10 [facility] [address] [place] [address] [address] 06/20/2024 Renetta Reyes Allergic rhinitis du e to pollen J30.1 ; Allergic rhinitis due to animal (cat) (dog) hair and dander J30.81 ; Other allergic rhinitis J30.89 ; Chronic cough R05.3 ; Wheezing R06.2 ; Chronic sinusitis, unspecified J32.9 ; Vitamin D deficiency, unspecified E55.9 and Essential (primary) hypertension I10 [facility] [address] [place], [place] [address] [address] [place] [phone] 10/10/2024 German Hawk Allergic rhinitis du e to pollen J30.1 ; Allergic rhinitis due to animal (cat) (dog) hair and dander J30.81 ; Other allergic rhinitis J30.89 and Other chronic allergic conjunctivitis H10.45 [facility] [address] [place], [place] [address] [address] [address] 07/11/2024 Renetta Reyes [facility] [address] [place] [address] 06/27/2024 Renetta Reyes [facility] [address] [place], [place] [address] [address] [address] 06/17/2025 Renetta Reyes Chronic cough R05.3 [facility] [address] [place] [address] 04/11/2025 Renetta Reyes [facility] [address] [place] [address] 12/12/2024 Renetta Reyes Chronic cough R05.3 [facility] [address] [facility] [place] [address] 10/31/2024 Renetta Reyes Allergic rhinitis du e to pollen J30.1 [facility] [address] [place], [place] [address] [address] [place] [phone] 10/04/2024 Renetta Reyes Allergic rhinitis du e to pollen J30.1 [facility] [address] [place], [place] [address] [address] [place] [phone] 09/24/2024 Renetta Reyes [facility] [address] [place] [address] 09/12/2024 Renetta Reyes Assessments Encounter Date Diagnosis (ICD Code) Assessment Notes Treatment Notes Treatment Clinical Notes Section Notes 06/20/2024 Allergic rhinitis due to pollen (ICD-10 - J30.1) Kyung clearly suffers from atopic disease based upon our skin testing and clinical history. Accordingly, we have introduced a new, aggressive medication regimen, discussed nasal washes and allergy-specific avoidance measures. We also discussed adjunctive therapies including subcutaneous, specific allergen immunotherapy as relates to the treatment and prevention of atopic disease. After considering the risks, benefits and alternatives to this care, we elected to continue treatment today. Risks: bleeding, infection, allergic reaction, anaphylaxis; Benefits: reduced need for medications, improved symptoms, disease modification. Alternatives: watch/wait, change medication regimen, improve allergy avoidance measures. - She continues SCIT via [employer]. Dosing tolerated today without local or systemic reaction. - Continue medications as listed above. Continue premedication with Brianna. Will trial Azelastine given concern for PND. Proper demonstration given. - AIE on hand. Patient was instructed that epinephrine needs to be carried to each immunotherapy visit and should be carried 2 hrs after dosing. - Follow-up in 3-4 months for E&M 06/27/2024 Allergic rhinitis due to pollen (ICD-10 - J30.1) 07/04/2024 Allergic rhinitis due to pollen (ICD-10 - J30.1) 07/11/2024 Allergic rhinitis due to pollen (ICD-10 - J30.1) 07/18/2024 Allergic rhinitis due to pollen (ICD-10 - J30.1) 08/06/2024 Allergic rhinitis due to pollen (ICD-10 - J30.1) 08/13/2024 Allergic rhinitis due to pollen (ICD-10 - J30.1) 08/22/2024 Allergic rhinitis due to pollen (ICD-10 - J30.1) 08/29/2024 Allergic rhinitis due to pollen (ICD-10 - J30.1) 09/05/2024 Allergic rhinitis due to pollen (ICD-10 - J30.1) 06/20/2024 Allergic rhinitis due to animal (cat) (dog) hair and dander (ICD-10 - J30.81) Follow allergen avoidance, meds and continue SCIT as an adjunctive treatment to current regimen 09/12/2024 Allergic rhinitis due to pollen (ICD-10 - J30.1) Kyung clearly suffers from atopic disease based upon our skin testing and clinical history. Accordingly, we have introduced a new, aggressive medication regimen, discussed nasal washes and allergy-specific avoidance measures. We also discussed adjunctive therapies including subcutaneous, specific allergen immunotherapy as relates to the treatment and prevention of atopic disease. After considering the risks, benefits and alternatives to this care, we elected to continue treatment today. Risks: bleeding, infection, allergic reaction, anaphylaxis; Benefits: reduced need for medications, improved symptoms, disease modification. Alternatives: watch/wait, change medication regimen, improve allergy avoidance measures. - She continues SCIT via [employer]. Dosing tolerated today without local or systemic reaction. - Continue medications as listed above. Continue premedication with Brianna. Azelastine given concern for PND, but patient reports attempting x 1 and became nauseous. - AIE on hand. Patient was instructed that epinephrine needs to be carried to each immunotherapy visit and should be carried 2 hrs after dosing. - Follow-up in 3-4 months for E&M 09/19/2024 Allergic rhinitis due to pollen (ICD-10 - J30.1) 09/27/2024 Allergic rhinitis due to pollen (ICD-10 - J30.1) 09/12/2024 Allergic rhinitis due to animal (cat) (dog) hair and dander (ICD-10 - J30.81) Follow allergen avoidance, meds and continue SCIT as an adjunctive treatment to current regimen 10/02/2024 Allergic rhinitis due to pollen (ICD-10 - J30.1) 10/10/2024 Allergic rhinitis due to pollen (ICD-10 - J30.1) 10/17/2024 Allergic rhinitis due to pollen (ICD-10 - J30.1) 10/04/2024 Allergic rhinitis due to pollen (ICD-10 - J30.1) 10/24/2024 Allergic rhinitis due to pollen (ICD-10 - J30.1) 11/07/2024 Allergic rhinitis due to pollen (ICD-10 - J30.1) 11/22/2024 Allergic rhinitis due to pollen (ICD-10 - J30.1) 11/28/2024 Allergic rhinitis due to pollen (ICD-10 - J30.1) 10/31/2024 Allergic rhinitis due to pollen (ICD-10 - J30.1) 12/05/2024 Allergic rhinitis due to pollen (ICD-10 - J30.1) 12/19/2024 Allergic rhinitis due to pollen (ICD-10 - J30.1) 01/02/2025 Allergic rhinitis due to pollen (ICD-10 - J30.1) 01/16/2025 Allergic rhinitis due to pollen (ICD-10 - J30.1) 01/30/2025 Allergic rhinitis due to pollen (ICD-10 - J30.1) 02/13/2025 Allergic rhinitis due to pollen (ICD-10 - J30.1) 02/20/2025 Allergic rhinitis due to pollen (ICD-10 - J30.1) 02/27/2025 Allergic rhinitis due to pollen (ICD-10 - J30.1) 12/12/2024 Chronic cough (ICD-10 - R05.3) 03/21/2025 Allergic rhinitis due to pollen (ICD-10 - J30.1) Kyung clearly suffers from atopic disease based upon our skin testing and clinical history. Accordingly, we have introduced a new, aggressive medication regimen, discussed nasal washes and allergy-specific avoidance measures. We also discussed adjunctive therapies including subcutaneous, specific allergen immunotherapy as relates to the treatment and prevention of atopic disease. After considering the risks, benefits and alternatives to this care, we elected to continue treatment today. Risks: bleeding, infection, allergic reaction, anaphylaxis; Benefits: reduced need for medications, improved symptoms, disease modification. Alternatives: watch/wait, change medication regimen, improve allergy avoidance measures. - She continues SCIT. Dosing tolerated today without local or systemic reaction. - Continue medications as listed above. Continue premedication with Brianna. Azelastine given concern for PND, but patient reports attempting x 1 and became nauseous. - AIE on hand. Patient was instructed that epinephrine needs to be carried to each immunotherapy visit and should be carried 2 hrs after dosing. - Follow-up in 3-4 months for E&M 04/17/2025 Allergic rhinitis due to pollen (ICD-10 - J30.1) 05/15/2025 Allergic rhinitis due to pollen (ICD-10 - J30.1) 03/21/2025 Allergic rhinitis due to animal (cat) (dog) hair and dander (ICD-10 - J30.81) Follow allergen avoidance, meds and continue SCIT as an adjunctive treatment to current regimen 06/12/2025 Allergic rhinitis due to pollen (ICD-10 - J30.1) 06/17/2025 Chronic cough (ICD-10 - R05.3) 06/12/2025 Allergic rhinitis due to animal (cat) (dog) hair and dander (ICD-10 - J30.81) 05/15/2025 Allergic rhinitis due to animal (cat) (dog) hair and dander (ICD-10 - J30.81) 04/17/2025 Allergic rhinitis due to animal (cat) (dog) hair and dander (ICD-10 - J30.81) 03/21/2025 Other allergic rhinitis (ICD-10 - J30.89) Follow allergen avoidance, meds and continue SCIT as an adjunctive treatment to current regimen 02/27/2025 Allergic rhinitis due to animal (cat) (dog) hair and dander (ICD-10 - J30.81) 02/20/2025 Allergic rhinitis due to animal (cat) (dog) hair and dander (ICD-10 - J30.81) 02/13/2025 Allergic rhinitis due to animal (cat) (dog) hair and dander (ICD-10 - J30.81) 01/30/2025 Allergic rhinitis due to animal (cat) (dog) hair and dander (ICD-10 - J30.81) 01/16/2025 Allergic rhinitis due to animal (cat) (dog) hair and dander (ICD-10 - J30.81) 01/02/2025 Allergic rhinitis due to animal (cat) (dog) hair and dander (ICD-10 - J30.81) 12/19/2024 Allergic rhinitis due to animal (cat) (dog) hair and dander (ICD-10 - J30.81) 12/05/2024 Allergic rhinitis due to animal (cat) (dog) hair and dander (ICD-10 - J30.81) 11/28/2024 Allergic rhinitis due to animal (cat) (dog) hair and dander (ICD-10 - J30.81) 11/22/2024 Allergic rhinitis due to animal (cat) (dog) hair and dander (ICD-10 - J30.81) 11/07/2024 Allergic rhinitis due to animal (cat) (dog) hair and dander (ICD-10 - J30.81) 10/24/2024 Allergic rhinitis due to animal (cat) (dog) hair and dander (ICD-10 - J30.81) 10/17/2024 Allergic rhinitis due to animal (cat) (dog) hair and dander (ICD-10 - J30.81) 10/10/2024 Allergic rhinitis due to animal (cat) (dog) hair and dander (ICD-10 - J30.81) 10/02/2024 Allergic rhinitis due to animal (cat) (dog) hair and dander (ICD-10 - J30.81) 09/27/2024 Allergic rhinitis due to animal (cat) (dog) hair and dander (ICD-10 - J30.81) 09/19/2024 Allergic rhinitis due to animal (cat) (dog) hair and dander (ICD-10 - J30.81) 09/12/2024 Other allergic rhinitis (ICD-10 - J30.89) Follow allergen avoidance, meds and continue SCIT as an adjunctive treatment to current regimen 09/05/2024 Allergic rhinitis due to animal (cat) (dog) hair and dander (ICD-10 - J30.81) 08/29/2024 Allergic rhinitis due to animal (cat) (dog) hair and dander (ICD-10 - J30.81) 08/22/2024 Allergic rhinitis due to animal (cat) (dog) hair and dander (ICD-10 - J30.81) 08/13/2024 Allergic rhinitis due to animal (cat) (dog) hair and dander (ICD-10 - J30.81) 08/06/2024 Allergic rhinitis due to animal (cat) (dog) hair and dander (ICD-10 - J30.81) 07/18/2024 Allergic rhinitis due to animal (cat) (dog) hair and dander (ICD-10 - J30.81) 07/11/2024 Allergic rhinitis due to animal (cat) (dog) hair and dander (ICD-10 - J30.81) 07/04/2024 Allergic rhinitis due to animal (cat) (dog) hair and dander (ICD-10 - J30.81) 06/27/2024 Allergic rhinitis due to animal (cat) (dog) hair and dander (ICD-10 - J30.81) 06/20/2024 Other allergic rhinitis (ICD-10 - J30.89) Follow allergen avoidance, meds and continue SCIT as an adjunctive treatment to current regimen 06/27/2024 Other allergic rhinitis (ICD-10 - J30.89) 07/04/2024 Other allergic rhinitis (ICD-10 - J30.89) 07/11/2024 Other allergic rhinitis (ICD-10 - J30.89) 07/18/2024 Other allergic rhinitis (ICD-10 - J30.89) 08/06/2024 Other allergic rhinitis (ICD-10 - J30.89) 08/13/2024 Other allergic rhinitis (ICD-10 - J30.89) 08/22/2024 Other allergic rhinitis (ICD-10 - J30.89) 08/29/2024 Other allergic rhinitis (ICD-10 - J30.89) 09/05/2024 Other allergic rhinitis (ICD-10 - J30.89) 06/20/2024 Chronic cough (ICD-10 - R05.3) Kyung reports ongoing cough and wheezing, specifically in Spring when she receives yearly antibiotics and OCS. Per external med review, Kyung was prescribed antibitoics x 4 since 06/2023 and OCS x 3 since 01/2023. She reports treatment in the past with Symbicort, though discontinued due to thrush. Wixela started after initial visit with overall improvement in lower airways. ACT 23 today with no recent ARELY use. Unfortunately, Kyung began having hoarseness after DPI was initiated. She was transitiond to Advair HFA at prior visit with improvement in symptoms. No interval coughing since last visit. ACT 24. One interval ARELY use in past 3 months while vacationing in [place]. - Spirometry last visit in 03/2024 showed normal FVC, FEV1 FEV%. FVL shows scalloping on exhalation. Advanced lung age. - Continue Advair HFA. Instructed to continue to brush teeth after inhalation. Refills sent. - Continue ARELY PRN with spacer. - AAP formulated at prior visit and reviewed today. - PFTS from 03/2023 showed normal spirometry values without signficant bronchodilator response. Normal lung volume and uncorrected DLCO within normal limits. TLC 4.87L. - Treat atopy as stated above. - Consider pulmonology referral and further imaging for persistent or worsening symptoms despite treatment mentioned above. - Follow-up in 3-4 months for E&M 09/19/2024 Other allergic rhinitis (ICD-10 - J30.89) 09/27/2024 Other allergic rhinitis (ICD-10 - J30.89) 10/02/2024 Other allergic rhinitis (ICD-10 - J30.89) 09/12/2024 Chronic cough (ICD-10 - R05.3) Kyung reports ongoing cough and wheezing, specifically in Spring when she receives yearly antibiotics and OCS. Per external med review, Kyung was prescribed antibiotics x 4 since 06/2023 and OCS x 3 since 01/2023. She reports treatment in the past with Symbicort, though discontinued due to thrush. Wixela started after initial visit with overall improvement in lower airways. Unfortunately, Kyung began having hoarseness after DPI was initiated. She was transitioned to Advair HFA at prior visit with improvement in symptoms.Today, reports no interval ARELY use, but does report URI in 07/2024 treated with doxycyline and tessalon perles. Patient reported productive cough with brownish phlegm. Per records, left rhonchi heard on exam. No chest xray obtained at that time. Lungs CTA today. ACT 25 today. - Given recent URI with noted L rhochi and no recent chest xray in over 2 years, will obtain chest Xray now. Order printed and given to patient. - Spirometry last visit in 03/2024 showed normal FVC, FEV1 FEV%. FVL shows scalloping on exhalation. Advanced lung age. - Spirometry today showing borderline FVC, FEV1. Normal FEV%. FVL shows scalloping on exhalation. Advanced lung age. - Continue Advair HFA. Instructed to continue to brush teeth after inhalation. Refills sent. - Continue ARELY PRN with spacer. - AAP formulated at prior visit and reviewed today. - PFTS from 03/2023 showed normal spirometry values without signficant bronchodilator response. Normal lung volume and uncorrected DLCO within normal limits. TLC 4.87L. - Treat atopy as stated above. - Consider pulmonology referral and further imaging for persistent or worsening symptoms despite treatment mentioned above. - Consider CT scan per PCP given smoking history. - Follow-up in 3 months for E&M, repeat spirometry 10/10/2024 Other allergic rhinitis (ICD-10 - J30.89) 10/17/2024 Other allergic rhinitis (ICD-10 - J30.89) 10/24/2024 Other allergic rhinitis (ICD-10 - J30.89) 11/07/2024 Other allergic rhinitis (ICD-10 - J30.89) 11/22/2024 Other allergic rhinitis (ICD-10 - J30.89) 11/28/2024 Other allergic rhinitis (ICD-10 - J30.89) 12/05/2024 Other allergic rhinitis (ICD-10 - J30.89) 12/19/2024 Other allergic rhinitis (ICD-10 - J30.89) 01/02/2025 Other allergic rhinitis (ICD-10 - J30.89) 01/16/2025 Other allergic rhinitis (ICD-10 - J30.89) 01/30/2025 Other allergic rhinitis (ICD-10 - J30.89) 02/13/2025 Other allergic rhinitis (ICD-10 - J30.89) 02/20/2025 Other allergic rhinitis (ICD-10 - J30.89) 02/27/2025 Other allergic rhinitis (ICD-10 - J30.89) 04/17/2025 Other allergic rhinitis (ICD-10 - J30.89) 05/15/2025 Other allergic rhinitis (ICD-10 - J30.89) 06/12/2025 Other allergic rhinitis (ICD-10 - J30.89) 03/21/2025 Chronic cough (ICD-10 - R05.3) Kyung reports ongoing cough and wheezing, specifically in Spring when she receives yearly antibiotics and OCS. Per external med review, Kyung was prescribed antibiotics x 4 since 06/2023 and OCS x 3 since 01/2023. She reports treatment in the past with Symbicort, though discontinued due to thrush. Wixela started after initial visit with overall improvement in lower airways. Unfortunately, Kyung began having hoarseness after DPI was initiated. She was transitioned to Advair HFA at prior visit with improvement in symptoms.TPrevwolfgang awan reported URI in 07/2024 treated with doxycyline and tessalon perles. Patient reported productive cough with brownish phlegm. Per records, left rhonchi heard on exam. No chest xray obtained at that time. Lungs CTA today. ACT 24 today. - Chest Xray obtained in 09/2024 WNL. - Spirometry today showing borderline FVC, normal FEV!, FEV%. FVL shows scalloping on end-exhalation. Advanced lung age. - Continue Advair HFA. Instructed to continue to brush teeth after inhalation. - Continue ARELY PRN with spacer. - AAP formulated at prior visit and reviewed today. - PFTS from 03/2023 showed normal spirometry values without signficant bronchodilator response. Normal lung volume and uncorrected DLCO within normal limits. TLC 4.87L. - Treat atopy as stated above. - Consider pulmonology referral and further imaging for persistent or worsening symptoms despite treatment mentioned above. - Consider CT scan per PCP given smoking history. - Follow-up in 3 months for E&M 04/17/2025 Other chronic allergic conjunctivitis (ICD-10 - H10.45) 06/12/2025 Other chronic allergic conjunctivitis (ICD-10 - H10.45) 05/15/2025 Other chronic allergic conjunctivitis (ICD-10 - H10.45) 12/19/2024 Other chronic allergic conjunctivitis (ICD-10 - H10.45) 03/21/2025 Wheezing (ICD-10 - R06.2) As stated above. No interval wheezing. 02/27/2025 Other chronic allergic conjunctivitis (ICD-10 - H10.45) 02/20/2025 Other chronic allergic conjunctivitis (ICD-10 - H10.45) 02/13/2025 Other chronic allergic conjunctivitis (ICD-10 - H10.45) 01/30/2025 Other chronic allergic conjunctivitis (ICD-10 - H10.45) 01/16/2025 Other chronic allergic conjunctivitis (ICD-10 - H10.45) 01/02/2025 Other chronic allergic conjunctivitis (ICD-10 - H10.45) 12/05/2024 Other chronic allergic conjunctivitis (ICD-10 - H10.45) 11/28/2024 Other chronic allergic conjunctivitis (ICD-10 - H10.45) 11/22/2024 Other chronic allergic conjunctivitis (ICD-10 - H10.45) 11/07/2024 Other chronic allergic conjunctivitis (ICD-10 - H10.45) 10/10/2024 Other chronic allergic conjunctivitis (ICD-10 - H10.45) 10/24/2024 Other chronic allergic conjunctivitis (ICD-10 - H10.45) 10/17/2024 Other chronic allergic conjunctivitis (ICD-10 - H10.45) 09/19/2024 Other chronic allergic conjunctivitis (ICD-10 - H10.45) 10/02/2024 Other chronic allergic conjunctivitis (ICD-10 - H10.45) 09/27/2024 Other chronic allergic conjunctivitis (ICD-10 - H10.45) 06/27/2024 Other chronic allergic conjunctivitis (ICD-10 - H10.45) 09/12/2024 Wheezing (ICD-10 - R06.2) As stated above. No interval wheezing. 09/05/2024 Other chronic allergic conjunctivitis (ICD-10 - H10.45) 08/29/2024 Other chronic allergic conjunctivitis (ICD-10 - H10.45) 08/22/2024 Other chronic allergic conjunctivitis (ICD-10 - H10.45) 08/13/2024 Other chronic allergic conjunctivitis (ICD-10 - H10.45) 08/06/2024 Other chronic allergic conjunctivitis (ICD-10 - H10.45) 07/18/2024 Other chronic allergic conjunctivitis (ICD-10 - H10.45) 07/11/2024 Other chronic allergic conjunctivitis (ICD-10 - H10.45) 07/04/2024 Other chronic allergic conjunctivitis (ICD-10 - H10.45) 06/20/2024 Wheezing (ICD-10 - R06.2) As stated above. No interval wheezing. 06/20/2024 Chronic sinusitis, unspecified (ICD-10 - J32.9) Kyung reports frequent infection requiring antibiotics x 4 since 06/2023 and prednisone x 3 since 01/2023. Given recurrent infections, she met the F criteria for modified PIDD workup. Laboratory workup revealed inadequate s. pneumo () and low vitamin D (28.3). - Patient received [id number] in 01/2024 with repeat titers showing now adequate protection (20/23). - Treat Vit D deficiency - see below. 09/12/2024 Chronic sinusitis, unspecified (ICD-10 - J32.9) Kyung reports frequent infection requiring antibiotics x 4 since 06/2023 and prednisone x 3 since 01/2023. Given recurrent infections, she met the F criteria for modified PIDD workup. Laboratory workup revealed inadequate s. pneumo (13/) and low vitamin D (28.3). - Patient received [id number] in 01/2024 with repeat titers showing now adequate protection (20/23). - Treat Vit D deficiency - see below. 03/21/2025 Chronic sinusitis, unspecified (ICD-10 - J32.9) Kyung reports frequent infection requiring antibiotics x 4 since 06/2023 and prednisone x 3 since 01/2023. Given recurrent infections, she met the F criteria for modified PIDD workup. Laboratory workup revealed inadequate s. pneumo (13/) and low vitamin D (28.3). - Patient received [id number] in 01/2024 with repeat titers showing now adequate protection (20/23). - Today, reporting one interval sinus infection treated with antibiotics this past Spring. Consider modified PIDD workup for further infections. - Treat Vit D deficiency - see below. 03/21/2025 Vitamin D deficiency, unspecified (ICD-10 - E55.9) Recent Vitamin D level of 28.3. Patient completed 50,000 IU of vitamin D/ week for 8 weeks. She will now start 5,000 IU/day for 4 weeks. Discussed taking vitamin D with a fatty meal. Will recheck level now. - Vit D 52.6 from 06/2024, increased from 28.3 after 50,000IU weekly and continues on 5,000IU daily. Will continue 5,000IU and recheck in 6-12 months, around 05/2025. - Reported cramping so PCP decreased Vitamin D dosing to 1,000IU per day. Also started B complex and magnesium with improvement in cramping. - Will obtain repeat Vitamin D level now. 09/12/2024 Vitamin D deficiency, unspecified (ICD-10 - E55.9) Recent Vitamin D level of 28.3. Patient completed 50,000 IU of vitamin D/ week for 8 weeks. She will now start 5,000 IU/day for 4 weeks. Discussed taking vitamin D with a fatty meal. Will recheck level now. - Vit D 52.6 from 06/2024, increased from 28.3 after 50,000IU weekly and continues on 5,000IU daily. Will continue 5,000IU and recheck in 6-12 months, around 05/2025. 06/20/2024 Vitamin D deficiency, unspecified (ICD-10 - E55.9) Recent Vitamin D level of 28.3. Patient completed 50,000 IU of vitamin D/ week for 8 weeks. She will now start 5,000 IU/day for 4 weeks. Discussed taking vitamin D with a fatty meal. Will recheck level now. 06/20/2024 Essential (primary) hypertension (ICD-10 - I10) BP elevated today without symptoms of urgency or emergency. 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 Gutierrez. 09/12/2024 Essential (primary) hypertension (ICD-10 - I10) BP elevated today without symptoms of urgency or emergency. 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 Gutierrez. 03/21/2025 Essential (primary) hypertension (ICD-10 - I10) BP elevated today without symptoms of urgency or emergency. 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 Gutierrez. 09/12/2024 Other 06/20/2024 Other 03/21/2025 Other Plan Of Treatment Pending Test Test Name Order Date X ray : Chest 09/12/2024 Next Appt Details Provider Name:Renetta langston, 06/20/2025 03:00:00 PM, [email or web address], [address], Provider Name:German Hawk , 07/17/2025 11:00:00 AM, [email or web address], [place], [address], Insurance Providers Payer Name Payer Address Payer Phone Subscriber Number Group Number Insured Name Patient Relationship to Insured Coverage Start Date Coverage End Date [employer] [address] [address] [place] [phone] [id number] Antonio jones Kyung Self - patient is the insured 4 Medical (General) History Medical History History ICD Code Hypertension breast cancer Surgical History Surgery Date(Month/Year) tonsilitis back surgery, ruptured disc 09/15/1975 back surgery, ruptured disc 09/24/1979 back surgery, disc fused 11/23/2015 hysterectomy 01/22/1993 mastectomy 09/24/1999 Hospitalization History Reason Date(Month/Year) See Above
--- OUTSIDE RECORDS SUMMARY | 2025-06-18 16:40 | XMS_ITS | Clinical Summary ---
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 Name Role Phone Marshall Chew MD Primary Care Provider + Allergies Active Allergy Reactions Criticality Noted Date Comments Codeine Hallucinations High 11/15/2017 Other Diarrhea Medium 09/12/2019 Medications atenoloL (TENORMIN) 25 mg tablet 07/28/2021 Active pravastatin (PRAVACHOL) 20 mg tablet 07/28/2021 Active montelukast (SINGULAIR) 10 mg tablet 09/02/2021 Active albuterol HFA (PROVENTIL HFA,VENTOLIN HFA,PROAIR HFA) 90 mcg/actuation inhaler Inhale 2 puffs every 6 (six) hours as needed 04/30/2019 Active aspirin 81 mg enteric coated tablet Take 81 mg by mouth daily 04/30/2019 Active cholecalciferol (VITAMIN D-3) 5,000 unit capsule Take 5,000 Units by mouth daily 10/11/2018 Active fluticasone propion-salmeter oL (ADVAIR HFA) 115-21 mcg/actuation inhaler Inhale 2 puffs 2 (two) times a day 08/15/1969 Active fexofenadine (BROCK) 60 mg tablet Take 180 mg by mouth daily Active multivitamin tablet Active calcium carbonate-vitami n D3 1,500 mg (600 mg elemental)-400 unit capsule Take 10 mcg by mouth 2 (two) times a day Active Active Problems Problem Noted Date Diagnosed Date Epistaxis 09/16/2021 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 Lentigo 11/05/2016 Inflamed seborrheic keratosis 10/17/2014 Actinic keratosis 03/04/2014 Keratosis, senilis 03/04/2014 Surgical History Surgery Date Site/Laterality Comments BACK SURGERY MASTECTOMY HYSTERECTOMY Medical History Medical History Date Comments Personal history of other ma lignant neoplasm of skin History of skin cancer - (Ad ded by TW Conv) Allergic rhinitis Asthma Hypertension Cancer (HCC) Nosebleed Nasal lesion Family History Medical History Relation Name Comments Cancer Other Relation Name Status Comments Other Social History Tobacco Use Types Packs/Day Years Used Date Smoking Tobacco: Former Smokeless Tobacco: Never Comments Unknown Sex and Gender Information Value Date Recorded Sex Assigned at Not on file 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
== END 2025-06-18 15:26 | disposition home or self-care (01) ==
LOC: ANHFOHIMG 15:26
PROVIDERS: PCP Family Medicine Sports Medicine; Visit Provider Family Medicine Sports Medicine
DX: Z12.31 Encounter for screening mammogram for malignant neoplasm of breast (principal); Z90.12 Acquired absence of left breast and nipple
CPT/HCPCS: 77063; 77067